=== PATIENT | male | born 1985 | race American Indian/Alaskan Native ===

== ENCOUNTER 2017-01-29 18:37 | Emergency (ER) | payer BC, OTHER ==
[2017-01-29 18:53] VITALS: BP 121/81
[2017-01-29] MEDS ORDERED: XYLOCAINE 2%/ EPI 1:200,000 INFILTRATI ONE (22:20)
[2017-01-29] MEDS ORDERED: XYLOCAINE 2%/EPI 1:100,000 INFILTRATI ONE (22:22)
[2017-01-29] MEDS ORDERED: XYLOCAINE 1%/ EPI 1:100,000 INFILTRATI NR (23:00)
--- NOTE | 2017-01-29 23:06 | Emergency Department Report ---
ED General Adult HPI - General Chief complaint: Dental/Oral Stated complaint: TOOTHACHE/ SPIDER BITE Time Seen by Provider: 01/29/17 21:56 Source: patient Mode of arrival: Ambulatory Limitations: No Limitations - History of Present Illness Initial comments: Patient comes into the ER today with 2 complaints. Patient states that his right lower tooth has been hurting him for the past 3 days as well as a swollen area to the left side of his scalp. Patient denies any injury. Patient does state that a month or so ago he believes a piece of his tooth cracked off but it has not started bothering him until recently. Patient states that the swelling on the side of his head has been there for about a week. Patient states that it is not painful and he is thinking that maybe something bit him. Patient denies any fever, nausea, vomiting, ear pain, sinus congestion, sore throat. - Related Data Previous Rx's Medication Instructions Recorded Last Taken Type Cephalexin [Keflex] 500 mg PO TID #30 capsule 01/29/17 Unknown Rx traMADol [Ultram 50 MG tab] 50 mg PO Q4HR PRN #15 tablet 01/29/17 Unknown Rx Allergies Allergy/AdvReac Type Severity Reaction Status Date / Time No Known Allergies Allergy Unverified 04/30/16 12:13 ED Review of Systems ROS: Stated complaint: TOOTHACHE/ SPIDER BITE Other details as noted in HPI Constitutional: denies: chills, fever Eyes: denies: eye pain, eye discharge, vision change ENT: dental pain. denies: ear pain, throat pain, epistaxis, congestion Respiratory: denies: cough, shortness of breath, wheezing Cardiovascular: denies: chest pain, palpitations Endocrine: no symptoms reported Gastrointestinal: denies: abdominal pain, nausea, diarrhea Genitourinary: denies: urgency, dysuria Musculoskeletal: denies: back pain, joint swelling, arthralgia Skin: lesions (left parietal scalp). denies: rash Neurological: denies: headache, weakness, paresthesias Psychiatric: denies: anxiety, depression Hematological/Lymphatic: denies: easy bleeding, easy bruising ED Past Medical Hx - Past Medical History Previous Medical History?: No - Surgical History Past Surgical History?: No - Social History Smoking Status: Never Smoker Substance Use Type: None - Medications Home Medications: Home Medications Medication Instructions Recorded Confirmed Last Taken Type Cephalexin [Keflex] 500 mg PO TID #30 capsule 01/29/17 Unknown Rx traMADol [Ultram 50 MG tab] 50 mg PO Q4HR PRN #15 tablet 01/29/17 Unknown Rx ED Physical Exam - General Limitations: No Limitations General appearance: alert, in no apparent distress - Head Head exam: Present: atraumatic, normocephalic, other (non-indurated swollen raised nonerythematous area to left parietal consistent with underlying cyst) - Eye Eye exam: Present: normal appearance, PERRL, EOMI. Absent: conjunctival injection Pupils: Present: normal accommodation - ENT ENT exam: Present: mucous membranes moist, TM's normal bilaterally, normal external ear exam, other (right lower molar dental caries with surrounding gum redness and inflammation. No obvious abscess noted) - Neck Neck exam: Present: normal inspection, full ROM. Absent: tenderness, meningismus, lymphadenopathy - Respiratory Respiratory exam: Present: normal lung sounds bilaterally. Absent: respiratory distress - Cardiovascular Cardiovascular Exam: Present: regular rate, normal rhythm. Absent: systolic murmur, diastolic murmur, rubs, gallop - GI/Abdominal GI/Abdominal exam: Present: soft, normal bowel sounds. Absent: distended, tenderness - Rectal Rectal exam: Present: deferred - Extremities Exam Extremities exam: Present: normal inspection - Back Exam Back exam: Present: normal inspection - Neurological Exam Neurological exam: Present: alert, oriented X3, CN II-XII intact, normal gait, reflexes normal. Absent: motor sensory deficit - Psychiatric Psychiatric exam: Present: normal affect, normal mood - Skin Skin exam: Present: warm, dry, intact, normal color. Absent: rash ED Course Vital Signs 01/29/17 18:51 Temperature 98.3 F Pulse Rate 70 Respiratory 18 Rate Blood Pressure 121/81 O2 Sat by Pulse 98 Oximetry - I & D Left Lateral Head Type of Procedure: Simple Site: left parietal scalp Blade Size: 11 I & D Procedure: betadine prep Progress: 2% lidocaine with epinephrine infiltrated into raised area. 0.5 cm linear laceration made with 11 blade scalpel. Moderate amount of purulent thick yellow drainage expressed from scalp consistent with sebaceous cyst. Wound left open without any sutures. No active bleeding after procedure. Patient tolerated procedure very well without any complications. ED Medical Decision Making - Medical Decision Making Patient is nontoxic and hemodynamically stable. Left parietal sebaceous cyst incised and drained here in the ER. Patient however procedure very well following complications. Wound left open. I will start patient on Keflex for dental coverage as well as skin coverage. I will also refer patient to dentist for further evaluation of his dental caries. Patient is in agreement with treatment plan and patient is stable for discharge. Critical care attestation.: If time is entered above; I have spent that time in minutes in the direct care of this critically ill patient, excluding procedure time. ED Disposition Clinical Impression: Sebaceous cyst, Pain, dental, Dental infection Disposition: TO HOME OR SELFCARE Is pt being admited?: No Does the pt Need Aspirin: No Condition: Good Instructions: Abscess Incision and Drainage (ED), Toothache (ED) Prescriptions: Cephalexin [Keflex] 500 mg PO TID #30 capsule traMADol [Ultram 50 MG tab] 50 mg PO Q4HR PRN #15 tablet PRN Reason: Pain Referrals: PRIMARY CARE, [Primary Care Provider] - 3-5 Days [facility] [Outside] - 3-5 Days Time of Disposition: 23:06
== END 2017-01-29 23:10 | disposition home or self-care (01) ==
LOC: ED 18:37
DX: K04.7 Periapical abscess without sinus (principal); L72.3 Sebaceous cyst

== ENCOUNTER 2020-03-14 22:26 | Emergency (ER) | payer BC ==
[2020-03-15 00:11] VITALS: BP 124/78
== END 2020-03-15 08:01 | disposition left against medical advice (07) ==
LOC: ED 22:26
DX: R05 Cough (principal); Z53.21 Procedure and treatment not carried out due to patient leaving prior to being seen by health care provider